=== PATIENT | female | born 1960 | race Caucasian/White ===

== ENCOUNTER 2017-06-25 18:19 | Emergency (ER) | payer OTHER ==
[2017-06-25] MEDS ORDERED: ANTIVERT PO ONE (19:57)
--- NOTE | 2017-06-25 20:00 | Emergency Department Report ---
Blank Doc - Documentation Documentation: Patient has a history of vertigo presents with dizziness she states this is worse since been previously in the past. Patient states that when she takes her medication the dizziness stops her and then returns. I will get EKG CBC and BMP.
[2017-06-25 20:45] LABS: Hematocrit 41.9 % (30.3-42.9); Hemoglobin 13.8 gm/dl (10.1-14.3); Mean Corpuscular Hemoglobin 32 pg (28-32); Mean Corpuscular Volume 96 fl (79-97); Red Blood Count 4.37 M/mm3 (3.65-5.03)
[2017-06-25 20:46] LABS: Lymphocytes % (Auto) 35.2 % (13.4-35.0); Mean Corpuscular HGB Conc 33 % (30-34); Platelet Count 242 K/mm3 (140-440); Red Cell Distribution Width 13.5 % (13.2-15.2)
[2017-06-25 20:48] LABS: Basophils % (Auto) 0.5 % (0.0-1.8); Eosinophils # (Auto) 0.1 K/mm3 (0.0-0.4); Lymphocytes # (Auto) 2.3 K/mm3 (1.2-5.4); Monocytes # (Auto) 0.4 K/mm3 (0.0-0.8); Monocytes % (Auto) 5.8 % (0.0-7.3)
[2017-06-25 20:59] LABS: BUN/Creatinine Ratio 30; Blood Urea Nitrogen 18 mg/dL (7-17); Hemolysis Index 9
--- NOTE | 2017-06-25 21:02 | Emergency Department Report ---
ED Dizziness HPI - General Chief Complaint: Dizziness Stated Complaint: DIZZINESS Time Seen by Provider: 06/25/17 19:59 Source: patient, family, statistical secretary (statistical secretary present) Mode of arrival: Ambulatory Limitations: Language Barrier (speaks Bulgarian mostly and statistical secretary present) - History of Present Illness Initial Comments: Patient has a history of vertigo presents with dizziness she states this is worse since been previously in the past. Patient states that when she takes her medication the dizziness stops her and then returns. Patient denies any headache or head injury. Denies any neck pain. Denies any syncopal episode. Denies any nausea or vomiting. Denies any visual disturbances. She takes Antivert once a day and she is been seen by primary care. Pain is 0 out of 10. Denies any chest pain or shortness of breath. Denies any numbness or tingling to her extremities. Denies any nasal congestion or runny nose. Denies any clogged ear sensation MD Complaint: dizziness (with history on meds) Onset/Timin -: Gradual, days(s) (worst over 3 days) Timing: sudden onset Description: sense of movement, "room spinning", off-balance History of Same: Yes History of Trauma: No Severity: severe Improves With: other Worsens With: movement, position Associated Symptoms: denies: ataxia, chest pain, confusion, cough, diaphoresis, fever/chills, loss of appetite, malaise, rash, seizure, shortness of breath, syncope, weakness - Related Data Previous Rx's Medication Instructions Recorded Last Taken Type Meclizine [Antivert] 25 mg PO BID PRN #30 tablet 06/25/17 Unknown Rx Allergies Allergy/AdvReac Type Severity Reaction Status Date / Time No Known Allergies Allergy Unverified 06/25/17 18:32 ED Review of Systems ROS: Stated complaint: DIZZINESS Other details as noted in HPI Comment: All other systems reviewed and negative Constitutional: no symptoms reported Eyes: denies: eye pain, vision change ENT: denies: ear pain, throat pain, dental pain, hearing loss, epistaxis, congestion Respiratory: no symptoms reported Cardiovascular: denies: chest pain, palpitations, dyspnea on exertion, orthopnea , edema, syncope, paroxysmal nocturnal dyspnea Gastrointestinal: denies: abdominal pain, nausea, vomiting, diarrhea, constipation, hematemesis, melena, hematochezia Genitourinary: denies: dysuria, hematuria Musculoskeletal: denies: back pain, joint swelling, arthralgia, myalgia Skin: denies: rash Neurological: vertigo. denies: headache, weakness, numbness, paresthesias, confusion, abnormal gait, other ED Past Medical Hx - Past Medical History Previous Medical History?: Yes Additional medical history: Vertigo - Surgical History Past Surgical History?: No - Family History Family history: no significant - Social History Smoking Status: Never Smoker Substance Use Type: None - Medications Home Medications: Home Medications Medication Instructions Recorded Confirmed Last Taken Type Meclizine [Antivert] 25 mg PO BID PRN #30 tablet 06/25/17 Unknown Rx ED Physical Exam - General Limitations: No Limitations General appearance: alert, in no apparent distress - Head Head exam: Present: atraumatic, normocephalic, normal inspection, other (normal exam) - Eye Eye exam: Present: normal appearance, PERRL, EOMI. Absent: nystagmus, periorbital swelling, periorbital tenderness Pupils: Present: normal accommodation - ENT ENT exam: Present: normal exam, normal orophraynx, mucous membranes moist, TM's normal bilaterally, normal external ear exam - Neck Neck exam: Present: normal inspection, full ROM. Absent: tenderness, meningismus, lymphadenopathy, thyromegaly, other (no c-spine exam) - Respiratory Respiratory exam: Present: normal lung sounds bilaterally. Absent: respiratory distress, chest wall tenderness, accessory muscle use - Cardiovascular Cardiovascular Exam: Present: regular rate, normal rhythm, normal heart sounds. Absent: systolic murmur, diastolic murmur - GI/Abdominal GI/Abdominal exam: Present: soft, normal bowel sounds. Absent: distended, tenderness, guarding, rebound, rigid, organomegaly, mass, bruit, pulsatile mass , hernia - Extremities Exam Extremities exam: Present: normal inspection, full ROM, normal capillary refill , other (no clubbing, cyanosis or edema. +2+ distal extremities and no neurovascular compromise). Absent: tenderness, pedal edema, joint swelling, calf tenderness - Back Exam Back exam: Present: normal inspection, full ROM, other (ambulates without any difficulties). Absent: tenderness, CVA tenderness (R), CVA tenderness (L), muscle spasm, paraspinal tenderness, vertebral tenderness, rash noted - Neurological Exam Neurological exam: Present: alert, oriented X3, normal gait, reflexes normal. Absent: motor sensory deficit - Expanded Neurological Exam Expanded Neurological exam: Absent: innattentive, memory loss-remote event, memory loss- recent event, ataxia, receptive aphasia, expressive aphasia, total aphasia, tremor, protecting the airway Patient oriented to: Present: person, place, time Speech: Present: fluid speech Cranial nerves: EOM's Intact: Normal, Gag Reflex: Normal, Tongue Deviation: Normal, Nystagmus: Normal, Facial Sensation: Normal Ataxia: Absent: yes Cerebellar function: Romberg: Normal Upper motor neuron: Pronator Drift: Normal, Sensory Extinction: Normal Sensory exam: Upper Extremity Light Touch: Normal, Upper Extremity Temperature: Normal, UE 2 Point Discrimination: Normal, Lower Extremity Light Touch: Normal, Lower Extremity Temperature: Normal, LE 2 Point Discrimination: Normal Motor strength exam: RUE: 5, LUE: 5, RLE: 5, LLE: 5 Best Eye Response (Talha): (4) open spontaneously Best Motor Response (Talha): (6) obeys commands Best Verbal Response (Talha): (5) oriented Talha Total: 15 - Psychiatric Psychiatric exam: Present: normal affect, normal mood - Skin Skin exam: Present: warm, dry, intact, normal color. Absent: rash ED Course Vital Signs 06/25/17 06/25/17 18:32 21:34 Temperature 98.2 F Pulse Rate 83 Pulse Rate [ 63 Lying] Pulse Rate [ 66 Sitting] Pulse Rate [ 65 Standing] Respiratory 22 Rate Blood Pressure 146/81 Blood Pressure 126/70 [Lying] Blood Pressure 131/81 [Sitting] Blood Pressure 127/74 [Standing] O2 Sat by Pulse 95 Oximetry - Reevaluation(s) Reevaluation #1: 06/25/17 21:22 Patient was given Antivert 25 mg emergency room and she said she felt better. Awaiting orthostatic vital signs Reevaluation #2: 06/25/17 21:50 Orthostatic vital signs are normal ED Medical Decision Making - Lab Data Result diagrams: 06/25/17 20:27 06/25/17 20:27 Lab Results 06/25/17 06/25/17 Range/Units 20:27 20:27 WBC 6.4 (4.5-11.0) K/mm3 RBC 4.37 (3.65-5.03) M/mm3 Hgb 13.8 (10.1-14.3) gm/dl Hct 41.9 (30.3-42.9) % MCV 96 (79-97) fl MCH 32 (28-32) pg MCHC 33 (30-34) % RDW 13.5 (13.2-15.2) % Plt Count 242 (140-440) K/mm3 Lymph % (Auto) 35.2 H (13.4-35.0) % [place] % (Auto) 5.8 (0.0-7.3) % Eos % (Auto) 1.0 (0.0-4.3) % Baso % (Auto) 0.5 (0.0-1.8) % Lymph # 2.3 (1.2-5.4) K/mm3 [place] # 0.4 (0.0-0.8) K/mm3 Eos # 0.1 (0.0-0.4) K/mm3 Baso # 0.0 (0.0-0.1) K/mm3 Seg Neutrophils % 57.5 (40.0-70.0) % Seg Neutrophils # 3.7 (1.8-7.7) K/mm3 Sodium 141 (137-145) mmol/L Potassium 3.9 (3.6-5.0) mmol/L Chloride 99.3 (98-107) mmol/L Carbon Dioxide 30 (22-30) mmol/L Anion Gap 16 mmol/L BUN 18 H (7-17) mg/dL Creatinine 0.6 L (0.7-1.2) mg/dL Estimated GFR > 60 ml/min BUN/Creatinine Ratio 30 % Glucose 108 H (65-100) mg/dL Calcium 9.0 (8.4-10.2) mg/dL - EKG Data -: EKG Interpreted by Me (Dr. Pate) EKG shows normal: sinus rhythm Rate: normal - EKG Data Interpretation: no acute changes, normal EKG (66 bpm) - Medical Decision Making ED course: Patient here reports that she is they have been vertigo that's been worse than usual over the last 3 days. She denies any injury or headache. Neurological and neck exam is normal. Patient had orthostatic vital signs within normal limits. She reports that she is drinking appropriately. EKG normal sinus rhythm at 66 bpm and CBC and BMP stable with some slight abnormalities. I discussed this with patient via statistical secretary and she voiced understanding patient does have a primary care clinic that she goes to and that is treating her for vertigo. I discussed patient that she needs to return to the clinic in 2 days for follow-up visit and that I will put her on Antivert twice daily instead of once daily. She voiced understanding. I discussed with her that she needs to take her ER records to her primary care visit. She was given Antivert 25 mg by mouth in emergency room which she said made her felt better. Patient discharged home with her family in stable condition with prescription for Antivert. Critical care attestation.: If time is entered above; I have spent that time in minutes in the direct care of this critically ill patient, excluding procedure time. ED Disposition Clinical Impression: Vertigo Disposition: DC-01 TO HOME OR SELFCARE Is pt being admited?: No Does the pt Need Aspirin: No Condition: Stable Instructions: Vertigo (ED) Additional Instructions: Please follow-up with your primary care clinic in 2 days Please take medication as prescribed Increasing her fluid intake If condition worsens before you see your primary care, return to the emergency room. Prescriptions: Meclizine [Antivert] 25 mg PO BID PRN #30 tablet PRN Reason: Vertigo Referrals: PRIMARY CARE, [Primary Care Provider] - 06/27/17 Forms: Accompanied Note, Work/School Release Form(ED) Print Language: ISRAELI
[2017-06-25 21:35] VITALS: BP 126/70
== END 2017-06-25 22:13 | disposition home or self-care (01) ==
LOC: ED 18:19
DX: R42 Dizziness and giddiness (principal)
CPT/HCPCS: 36415; 80048; 85025; 93005; 93010; 99283